=== PATIENT | male | born 1960 | race Caucasian/White ===

== ENCOUNTER 2022-08-23 18:11 | Emergency (ER) | payer BC ==
--- NOTE | 2022-08-23 19:43 | NUR ---
CALLED FOR TRIAGE. NO FEI.
--- NOTE | 2022-08-23 19:53 | NUR ---
CALLED FOR TRIAGE. NO FEI.
== END 2022-08-23 19:54 | disposition left against medical advice (07) ==
LOC: ER 18:11
DX: Z53.21 Procedure and treatment not carried out due to patient leaving prior to being seen by health care provider (principal)